=== PATIENT | female | born 1990 | race Two or more races ===

== ENCOUNTER 2022-10-22 09:39 | Outpatient (CLI) | payer OTHER | END 2022-10-22 11:17 | disposition home or self-care (01) | LOC: PRENATAL 09:39 | PROVIDERS: ATTEND Obstetrics & Gynecology Maternal & Fetal Medicine | DX: O35.9XX0 Maternal care for (suspected) fetal abnormality and damage, unspecified, not applicable or unspecified (principal); O35.3XX0 Maternal care for (suspected) damage to fetus from viral disease in mother, not applicable or unspecified; O34.219 Maternal care for unspecified type scar from previous cesarean delivery; O99.280 Endocrine, nutritional and metabolic diseases complicating pregnancy, unspecified trimester; O43.90 Unspecified placental disorder, unspecified trimester; Z3A.21 21 weeks gestation of pregnancy ==

== ENCOUNTER 2022-12-05 14:00 | Outpatient (CLI) | payer OTHER | END 2022-12-05 15:36 | disposition home or self-care (01) | LOC: PRENATAL 14:00 | PROVIDERS: ATTEND Obstetrics & Gynecology Maternal & Fetal Medicine | DX: O26.849 Uterine size-date discrepancy, unspecified trimester (principal); O34.219 Maternal care for unspecified type scar from previous cesarean delivery; O43.90 Unspecified placental disorder, unspecified trimester; O99.280 Endocrine, nutritional and metabolic diseases complicating pregnancy, unspecified trimester; Z3A.28 28 weeks gestation of pregnancy ==

== ENCOUNTER 2023-01-05 22:51 | Outpatient (CLI) | payer OTHER ==
[2023-01-05] MEDS ORDERED: PRENATAL TABLE1 EAC4 PO (22:56)
== END 2023-01-06 11:15 | disposition home or self-care (01) ==
LOC: OBS/DEL 22:51
PROVIDERS: ATTEND Obstetrics & Gynecology
DX: O26.893 Other specified pregnancy related conditions, third trimester (principal); Z3A.32 32 weeks gestation of pregnancy

== ENCOUNTER 2023-01-07 10:08 | Outpatient (CLI) | payer OTHER ==
[~2023-01-07 10:08] MED LIST: PRENATAL TABLE1 EAC4 PO
== END 2023-01-07 11:20 | disposition home or self-care (01) ==
LOC: PRENATAL 10:08
PROVIDERS: ATTEND Obstetrics & Gynecology Maternal & Fetal Medicine
DX: O36.8199 Decreased fetal movements, unspecified trimester, other fetus (principal); O34.219 Maternal care for unspecified type scar from previous cesarean delivery; O99.280 Endocrine, nutritional and metabolic diseases complicating pregnancy, unspecified trimester; Z3A.33 33 weeks gestation of pregnancy

== ENCOUNTER 2023-02-04 10:58 | Outpatient (CLI) | payer OTHER | END 2023-02-04 12:02 | disposition home or self-care (01) | LOC: PRENATAL 10:58 | PROVIDERS: ATTEND Obstetrics & Gynecology Maternal & Fetal Medicine | DX: O26.849 Uterine size-date discrepancy, unspecified trimester (principal); O36.8199 Decreased fetal movements, unspecified trimester, other fetus; O40.1XX0 Polyhydramnios, first trimester, not applicable or unspecified; O99.280 Endocrine, nutritional and metabolic diseases complicating pregnancy, unspecified trimester; Z3A.36 36 weeks gestation of pregnancy ==

== ENCOUNTER 2023-02-06 16:56 | Inpatient (IN) | payer OTHER ==
[~2023-02-06] VITALS: Ht 154.9 cm; Wt 3.2 kg
[2023-02-06] MEDS ORDERED: LEVOXYL25 MCG (18:25)
== END 2023-02-09 15:43 | disposition home or self-care (01) | DRG 788 ==
LOC: LDR 16:56 → O/R 20:20 → OB/GYN 21:42
PROVIDERS: ADMIT Obstetrics & Gynecology; ATTEND Obstetrics & Gynecology
PROC: 4A1HXCZ Monitoring of Products of Conception, Cardiac Rate, External Approach (ICD-10-PCS; 2023-02-06)
PROC: 10D00Z1 Extraction of Products of Conception, Low, Open Approach (ICD-10-PCS; principal; 2023-02-06 19:00)
DX: O34.211 Maternal care for low transverse scar from previous cesarean delivery (principal); Z3A.37 37 weeks gestation of pregnancy; Z37.0 Single live birth; Z20.822 Contact with and (suspected) exposure to COVID-19